=== PATIENT | male | born 1970 | race American Indian/Alaskan Native ===

== ENCOUNTER 2018-01-02 14:12 | Emergency (ER) | payer MEDICAID ==
[2018-01-02 14:26] VITALS: BMI 26.9
[2018-01-02 14:29] VITALS: O2SAT 100
--- NOTE | 2018-01-02 14:37 | C.PDOC ---
History Of Present Illness 47 Y/O MALE PRESENTS TO ED WITH C/O INTERMITTENT RIGHT FLANK PAIN FOR 3 HOURS ASSOCIATED WITH NAUSEA. PATIENT STATES SYMPTOMS FEEL SIMILAR TO PRIOR AND THINKS POSSIBLE RECURRENT KIDNEY STONE. PATIENT DENIES FEVER, CHILLS, NAUSEA, VOMITING, DYSURIA OR HEMATURIA. Time Seen by Provider: 01/02/18 14:32 Chief Complaint (Nursing): Male Genitourinary History Per: Patient History/Exam Limitations: no limitations Onset/Duration Of Symptoms: Hrs Current Symptoms Are (Timing): Still Present Quality Of Discomfort: "Pain" Associated Symptoms: Nausea Past Medical History Reviewed: Historical Data, Nursing Documentation, Vital Signs Vital Signs: Last Vital Signs Temp 97.8 F 01/02/18 14:24 Pulse 74 01/02/18 14:24 Resp 21 01/02/18 14:24 BP 143/91 H 01/02/18 14:24 Pulse Ox 100 01/02/18 15:05 - Medical History PMH: Kidney Stones (2015 RIGHT SIDE), Chronic Kidney Disease (SEE COMMENT) - [facility] Procedures CLOSURE SKIN & SUBCUTANEOUS NEC (11/11/14) DPT ADMINISTRATION (11/11/14) INJECT/INFUSE ELECTROLYT (04/06/15) INJECT/INFUSE NEC (04/06/15) - Social History Hx Alcohol Use: No Hx Substance Use: No - Immunization History Hx Tetanus Toxoid Vaccination: No Hx Influenza Vaccination: No Hx Pneumococcal Vaccination: No Review Of Systems Constitutional: Negative for: Fever, Chills Gastrointestinal: Positive for: Other (Flank pain). Negative for: Nausea, Vomiting Genitourinary: Negative for: Dysuria, Hematuria Musculoskeletal: Negative for: Back Pain Skin: Negative for: Rash Physical Exam - Physical Exam Appears: Non-toxic, Other (In moderate distress) Skin: Warm, Dry, No Rash Head: Atraumatic, Normacephalic Oral Mucosa: Moist Neck: Normal ROM, Supple Cardiovascular: Rhythm Regular Respiratory: Normal Breath Sounds, No Rales, No Rhonchi, No Wheezing Gastrointestinal/Abdominal: Soft, No Tenderness, No Guarding, No Rebound Back: No CVA Tenderness Extremity: Normal ROM, Capillary Refill (<2 seconds) Neurological/Psych: Oriented x3, Normal Speech, Normal Cognition ED Course And Treatment - Laboratory Results Result Diagrams: 01/02/18 15:29 01/02/18 15:29 O2 Sat by Pulse Oximetry: 100 (RA) Pulse Ox Interpretation: Normal Progress - Re-Evaluation Re-evaluation Note: 01/02/18 15:57 IMPROVED COMPARED TO PRIOR APPEARS COMFORTABLE. DC REFERRAL GIVEN - Data Reviewed Data Reviewed: Lab, Diagnostic imaging, Old records - Continuity of Care Discussed patient case with:: Patient, Family-HIPPA compliant Disposition Counseled Patient/Family Regarding: Studies Performed, Diagnosis, Need For Followup, Rx Given - Disposition Referrals: Paul Fermin MD [Staff Provider] - Disposition: HOME/ ROUTINE Disposition Time: 15:58 Condition: IMPROVED Prescriptions: Ibuprofen [Motrin] 600 mg PO Q6 #30 tab Ondansetron [Zofran Odt] 4 mg PO TID PRN #9 odt PRN Reason: Nausea/Vomiting oxyCODONE/Acetaminophen [Percocet 5/325 mg Tab] 1 ea PO QID #8 tab Tamsulosin [Flomax] 0.4 mg PO DAILY #14 cap Instructions: Kidney Stones (DC) Forms: [facility] (Spanish), Work Excuse - Clinical Impression Clinical Impression: Ureteral calculus - Scribe Statement The provider has reviewed the documentation as recorded by the Scriblaura Hooker All medical record entries made by the Scribe were at my direction and personally dictated by me. I have reviewed the chart and agree that the record accurately reflects my personal performance of the history, physical exam, medical decision making, and the department course for this patient. I have also personally directed, reviewed, and agree with the discharge instructions and disposition.[email or web address]
[2018-01-02] MEDS ORDERED: Sodium Chloride 0.9% 1,000 ML IV STA (14:41)
[2018-01-02] MEDS ORDERED: SODIUM CHLORIDE 0.9% IV STA (14:41)
[2018-01-02] MEDS ORDERED: LIDOCAINE IV STA (14:41)
[2018-01-02 15:21] LABS: URINE BILIRUBIN NEGATIVE (NEGATIVE); URINE BLOOD 3+ (NEGATIVE); URINE CLARITY Hazy (Clear); URINE COLOR Yellow (YELLOW); URINE GLUCOSE (UA) NORMAL (Normal); URINE LEUKOCYTE ESTERASE NEG Leu/uL (Negative); URINE PROTEIN NEGATIVE (NEGATIVE); URINE UROBILINOGEN NORMAL mg/dL (0.2-1.0)
[2018-01-02] MEDS ORDERED: Sodium Chloride 0.9% 1,000 ML ONE (15:22)
[2018-01-02 15:33] LABS: BASO # 0.1 K/uL (0.0-0.2); BASO % 0.6 % (0.0-2.0); EOS % 0.2 % (0.0-4.0); HEMOGLOBIN 14.1 g/dL (12.0-18.0); LYMPH # 0.8 K/uL (1.0-4.3); LYMPH % 8.7 % (20.0-40.0); MEAN CORPUSCULAR HEMOGLOBIN 30.5 pg (27.0-31.0); MEAN CORPUSCULAR HGB CONC 35.1 g/dL (33.0-37.0); MEAN PLATELET VOLUME 8.2 fL (7.2-11.7); MONO # 0.3 K/uL (0.0-0.8); MONO % 3.5 % (0.0-10.0); NEUT # 7.8 K/uL (1.8-7.0); NRBC % 0.1 % (0.0-2.0); PLATELET COUNT 226 K/uL (130-400); RBC 4.63 Mil/uL (4.40-5.90); RED CELL DISTRIBUTION WIDTH 13.4 % (11.5-14.5); WHITE BLOOD COUNT 8.9 K/uL (4.8-10.8)
--- NOTE | 2018-01-02 15:44 | CT ---
PROCEDURE: CT Abdomen and Pelvis without intravenous contrast HISTORY: abd pain R FLANK COMPARISON: None. TECHNIQUE: Without contrast.. Contrast Dose: 0 Radiation dose: Total exam DLP = Total exam DLP = 1036.61 mGy-cm. This CT exam was performed using one or more of the following dose reduction techniques: Automated exposure control, adjustment of the mA and/or kV according to patient size, and/or use of iterative reconstruction technique. FINDINGS: LOWER THORAX: Unremarkable. LIVER: Unremarkable. No gross lesion or ductal dilatation. GALLBLADDER AND BILE DUCTS: Unremarkable. PANCREAS: Unremarkable. No gross lesion or ductal dilatation. SPLEEN: Unremarkable. ADRENALS: Unremarkable. No mass. KIDNEYS AND URETERS: Numerous nonobstructing bilateral renal calculi. Largest calculus in the right kidney is in the mid kidney measuring 5 mm. Largest calculus in the left kidney is in the upper pole, measuring 5 mm. There is mild right hydronephrosis and proximal hydroureter. There is an obstructing 4 mm calculus in the right ureter at the junction of the middle and proximal thirds. There is no perinephric fluid. There is stranding of the fat about the proximal right ureter. There is no left hydronephrosis. VASCULATURE: Unremarkable. No aortic aneurysm. BOWEL: Unremarkable. No obstruction. No gross mural thickening. APPENDIX: Unremarkable. Normal appendix. PERITONEUM: Unremarkable. No free fluid. No free air. LYMPH NODES: Unremarkable. No enlarged lymph nodes. BLADDER: Nondistended REPRODUCTIVE: Normal prostate BONES: No acute fracture. OTHER FINDINGS: None. IMPRESSION: Obstructing 4 mm proximal right ureteral calculus with mild right hydronephrosis. Numerous small nonobstructing bilateral renal calculi. No other significant abnormality.
--- NOTE | 2018-01-02 15:45 | RAD ---
HISTORY: Abdominal pain. COMPARISON: January 02, 2018. CT abdomen and pelvis FINDINGS: BOWEL: Normal. No obstruction. No free air. BONES: Normal. OTHER FINDINGS: Tiny radiopaque calculi identified overlying the expected locations of both kidneys, findings seen with greater clarity on the concurrent CT scan. IMPRESSION: Tiny bilateral renal calculi. Otherwise unremarkable study
[2018-01-02 15:46] LABS: BLOOD UREA NITROGEN 19 mg/dL (9-20); CALCIUM 9.2 mg/dl (8.6-10.4); GFR AFRICAN-AMERICAN > 60; GFR NON-AFRICAN AMERICAN 51
[2018-01-02 15:52] LABS: BANDS 4 % (0-2); LYMPHOCYTE 10 % (20-40); MONOCYTE 1 % (0-10); NEUTROPHIL 85 % (50-75); TOTAL CELLS COUNTED 100
[2018-01-02 15:53] LABS: PLATELET ESTIMATE NORMAL (NORMAL)
[2018-01-02 16:26] VITALS: BP 126/76; PULSE 82; RESP 20; TEMP 98.3
[2018-01-02] MEDS ORDERED: Morphine 4 MG/ML VIAL ONE (16:30)
== END 2018-01-02 16:40 | disposition home or self-care (01) ==
LOC: C.ER 14:12
DX: N13.2 Hydronephrosis with renal and ureteral calculous obstruction (principal)
CPT/HCPCS: 74018; 74176; 80048; 81001; 85025; 96361; 96374; 96375; 99285; J1885; J2001; J2270; J7040